=== PATIENT | male | born 1970 | race Caucasian/White ===

== ENCOUNTER 2024-09-09 19:12 | Emergency (ER) | payer OTHER, SELFPAY ==
[2024-09-09] VITALS (17 sets, daily range): BP systolic 133–154; BP diastolic 78–89; PULSE 46–65; RESP 16–18; TEMP 36.7; O2SAT 97–99; BMI 29.8
--- NOTE | 2024-09-09 19:25 | CRLHL7_ITS ---
For Patients: As a result of the Century Cures Act, medical imaging exams and procedure reports are released immediately into your electronic medical record. You may view this report before your referring provider. If you have questions, please contact your health care provider. INDICATION: Syncope. Fall. Facial injury. Right jaw pain. COMPARISON: None. TECHNIQUE: Noncontrast CT of the facial bones. FINDINGS: No facial fractures. Specifically, the nasal bones, zygomatic arches, and bony orbits are intact. No fractures of the maxilla or mandible. Normal articulation at the bilateral temporomandibular joints. Mucosal thickening frothy fluid of the bilateral maxillary sinuses. Mucosal thickening opacifies the bilateral ethmoid air cells. Remaining visualized paranasal sinuses mastoid air cells are clear. Visualized orbits are unremarkable. IMPRESSION: 1. No facial fractures 2. Normal articulation at the bilateral temporomandibular joints. 3. Moderate sinus disease. Please note that all CT scans at this facility use dose modulation, iterative reconstruction, and/or weight-based dosing when appropriate to reduce radiation dose to as low as reasonably achievable. Dictated by Jett Toscano MD @ 09/09/2024 7:58:21 PM (Electronically Signed)
--- NOTE | 2024-09-09 19:25 | CRLHL7_ITS ---
For Patients: As a result of the Century Cures Act, medical imaging exams and procedure reports are released immediately into your electronic medical record. You may view this report before your referring provider. If you have questions, please contact your health care provider. INDICATION: Syncope and fall. COMPARISON: None. TECHNIQUE: Noncontrast CT head. FINDINGS: Normal brain parenchymal morphology. No acute intracranial hemorrhage, acute infarct, focal edema, mass effect, or fracture. No midline shift. No abnormal ventricular dilatation. Normal calvarium and skull base. Lobulated mucosal thickening of the bilateral mastoid sinuses. Mucosal thickening opacifies the ethmoid air cells. Remaining visualized paranasal sinuses and mastoid air cells are clear. IMPRESSION: 1. No acute intracranial abnormality. 2. Normal brain parenchymal morphology. 3. Mild sinus disease Please note that all CT scans at this facility use dose modulation, iterative reconstruction, and/or weight-based dosing when appropriate to reduce radiation dose to as low as reasonably achievable. Dictated by Jett Toscano MD @ 09/09/2024 7:52:19 PM (Electronically Signed)
--- NOTE | 2024-09-09 19:27 | ED.SYNCOPE ---
HPI - Syncope General Time Seen by Provider: 19:27 Date Seen: 09/09/24 Chief Complaint: Syncope/Fainted Stated Complaint: fell, hit head Time Seen by Provider: 09/09/24 19:14 Source: patient and RN notes reviewed Mode of arrival: ambulatory Limitations: no limitations History of Present Illness HPI narrative: This 54-year-old male is ambulatory into the ED after a syncopal episode, presents with his . 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 He did not eat lunch, they were at the bar in [place] going to get dinner, he had had 2 beers. He states he went to go to the bathroom, while he was in the bathroom started to feel dizzy, patient was urinating. He noted no chest pain, no headache, no numbness tingling or weakness. He started feeling increased dizziness, felt clammy and sweaty, next thing he came to on the floor by the pool table. He does not actually remember passing out. A bystander sought, stated he was out for about 30-60 seconds. There was no seizure activity noted. His right jaw is sore but he denies any headache, no visual changes, no neck or back pain. No chest pain, no difficulty breathing, he had no sense of palpitations or irregular heartbeat or fast heartbeat either before or after. He maybe has a little bit of left elbow soreness but states he can fully flex and extend and move the arm without any pain. He noted no issues ambulating in. He states he is hungry. He admits that he has not had any water for 2 days probably, is not a good water drinker. complaint: loss of consciousness and felt faint Related Data Home Medications ?Medication ?Instructions ?Recorded ?Confirmed No Known Home Medications 09/09/24 09/09/24 Allergies Allergy/AdvReac Type Severity Reaction Status Date / Time No Known Drug Allergies Allergy Verified 09/09/24 19:24 Review of Systems Status of ROS: Reports: 6 or more systems reviewed and unremarkable except as noted in History and below Exam Const: Vital Signs, click to edit/add: Vital Signs - 24 hr 09/09/24 19:20 09/09/24 19:39 Temperature 98.0 F Pulse Rate [Right Pulse Oximeter] 65 Respiratory Rate 18 Blood Pressure [Ri ght Upper Arm] 140/79 H Pulse Oximetry 98 98 Oxygen Delivery Me thod Room Air This 54-year-old male is alert, interactive, no apparent stress. GCS is 15/15. He ambulated into the ED of his own accord, get normal. Pupils equal round reactive, sclerae clear, extraocular muscles intact. Maybe mild superficial abrasion over the mid right zygomatic arch and then more linear abrasion below the right jaw line on the undersurface of the chin. None of these are actively bleeding. Nose is atraumatic. Is able to open his jaw although he states it feels sore on the right side, oropharynx with normal mucosa, normal dentition, no traumatic change. No cervical adenopathy or masses in his neck. No midline tenderness of his neck, full range of motion of his neck without any discomfort. Back inspected, no traumatic change. Lungs are clear, good air entry, no wheezing or crackles. No tachypnea. CV regular rate and rhythm, no murmur, normal S1-S2, no S3-S4. He is able to mobilize his upper extremities, utilizes all joints with flexion extension, strength is 5 5 and symmetric, no traumatic change noted. Abdomen is soft, nontender, nondistended, no organomegaly or tenderness. Mobilize as his lower extremities, gait was normal, no neurologic changes. Documenting provider has reviewed patient's vital signs: yes Course Course ED Course: Patient will have EKG, cardiac monitoring and pulse oximetry. Will place an IV and give him 500 mL of normal saline. We will check full complement of labs. He will get a head CT for the trauma in the syncope, will also do maxillofacial CT imaging to ensure no jaw fracture. He is hemodynamically stable, oxygenating well, no bleeding. This might be multifactorial syncope from alcohol use, poor oral intake with food and water and being hungry, then going to urinate, possible component of micturition syncope contributing to this. Does not sound like there is any seizure activity. Will continue to monitor patient here and evaluate any further concerns. Doubtful that this is subarachnoid hemorrhages he has no headache, no preceding headache. Will do D-dimer but unlikely to be significant pulmonary embolus as patient is hemodynamically stable in absolutely no chest or respiratory symptoms. Reevaluation(s) Time of Reevaluation #1: 20:33 Reevaluation #1: Have reviewed the negative head CT, no fracture of the jaw. Did offer patient has some Tylenol or ibuprofen but he does not want anything for his jaw. It is sore but he states it is not significant. Did offer an ice pack which he declines. Reviewed with him that he might need to eat softer foods through the weekend, he might even evolve into a TMJ type symptoms from trauma, may need to watch for this. Initial labs are normal, will do a follow-up troponin. He thinks that this happened around 645, maybe 7 at the latest. Thus, we are close to a 3 hour interval and will do a follow-up troponin. He has no evidence of any arrhythmia, no hypoxia, no cardiac or respiratory symptoms, no headache. Lactate was normal. Time of Reevaluation #2: 21:14 Reevaluation #2: Did review his glucose level with him as he was interested in this. His follow-up troponin is normal, he has no recurrent symptoms, has been back to baseline since the event. Will plan on discharge to home, likely vasovagal syncope but have stressed to him that if there recurrent episodes, he needs further workup. Vital Signs Vital signs: Initial Vital Signs Temperature 98.0 F 09/09/24 19:20 Temperature Source Temporal Artery Scan 09/09/24 19:20 Pulse Rate 65 09/09/24 19:20 Respiratory Rate 18 09/09/24 19:20 Blood Pressure 140/79 H 09/09/24 19:20 Blood Pressure Mean 99 09/09/24 19:20 Blood Pressure Position Sitting 09/09/24 19:20 Pulse Oximetry 98 09/09/24 19:20 Oxygen Delivery Method Room Air 09/09/24 19:20 Vital Signs Temperature 98.0 F 09/09/24 19:20 Pulse Rate 65 09/09/24 19:20 Respiratory Rate 18 09/09/24 19:20 Blood Pressure 140/79 H 09/09/24 19:20 Pulse Oximetry 98 09/09/24 19:20 Oxygen Delivery Method Room Air 09/09/24 19:20 Temperature 98.0 F 09/09/24 19:20 Pulse Rate 65 09/09/24 19:20 Respiratory Rate 18 09/09/24 19:20 Blood Pressure 140/79 H 09/09/24 19:20 Pulse Oximetry 98 09/09/24 19:39 Oxygen Delivery Method Room Air 09/09/24 19:20 Medications Administered Medications: Discontinued Medications Generic Name Dose Route Start Last Admin Trade Name Janel PRN Reason Stop Dose Admin Sodium Chloride 500 mls @ 500 mls/hr 09/09/24 19:26 09/09/24 19:47 0.9 % Sodium Chloride 500 Ml IV 09/09/24 20:25 500 mls/hr .Q1H ONE Administration MDM - Syncope Lab Data Attestation: I reviewed the patient's lab results. Labs: Lab Results 09/09/24 09/09/24 09/09/24 Range/Units 19:30 19:30 19:30 WBC 6.00 (4.50-11.00) K/uL RBC 4.50 (4.30-5.90) m/uL Hgb 14.3 (13.5-17.5) gm/dL Hct 43.2 (37.0-53.0) % MCV 96 (80-100) fL MCH 32 (26-34) pg MCHC 33 (32-36) gm/dL RDW Coeff of Gerry 12.4 (11.5-15.5) % Plt Count 200 (140-440) K/uL Neut % (Auto) 51.8 (42.0-72.0) % Lymph % (Auto) 30.7 (20-44) % Bureau % (Auto) 12.0 H (0.0-11.0) % Eos % (Auto) 3.8 (0.0-7.0) % Baso % (Auto) 0.7 (0.0-3.0) % Neut # (Auto) 3.11 (1.7-7.0) K/uL Lymph # (Auto) 1.84 (0.90-2.90) K/uL Bureau # (Auto) 0.70 (0.00-0.90) K/UL Eos # (Auto) 0.23 (0.00-0.50) K/uL Baso # (Auto) 0.04 (0.00-0.30) K/uL Abs Immat Gran (auto) 0.06 (0.00-0.30) K/uL Imm/Tot Granulo (auto) 1.0 % D-Dimer Quant (PE/DVT) 0.54 H (0.00-0.50) ug/ml Sodium 135 (135-149) mmol/L Potassium 3.6 (3.6-5.1) mmol/L Chloride 98 (96-114) mmol/L Carbon Dioxide 28 (20-32) mmol/L Anion Gap 9 (7-15) mEq/L BUN 21 (7-30) mg/dL Creatinine 0.9 (0.5-1.5) mg/dL Estimated Creat Clear 100.59 Estimated GFR 100 ml/min Glucose 137 H (60-115) mg/dL Lactate 1.7 (0.5-1.9) mmol/L Calcium 9.9 (8.4-10.6) mg/dL Total Bilirubin 0.2 (0.1-1.5) mg/dL AST 31 (12-35) U/L ALT 40 (4-50) U/L Alkaline Phosphatase 61 (40-150) U/L Troponin I < 0.01 L Cancelled (0.01-0.04) ng/mL NT-Pro-B Natriuret Pep < 20 Cancelled pg/mL Total Protein 7.2 (6.0-8.3) g/dL Albumin 4.5 (3.3-5.0) g/dL Ethyl Alcohol 0.03 (0.01-0.03) % POC Troponin I (0.01-0.04) ng/ml 09/09/24 Range/Units 20:39 WBC (4.50-11.00) K/uL RBC (4.30-5.90) m/uL Hgb (13.5-17.5) gm/dL Hct (37.0-53.0) % MCV (80-100) fL MCH (26-34) pg MCHC (32-36) gm/dL RDW Coeff of Gerry (11.5-15.5) % Plt Count (140-440) K/uL Neut % (Auto) (42.0-72.0) % Lymph % (Auto) (20-44) % Bureau % (Auto) (0.0-11.0) % Eos % (Auto) (0.0-7.0) % Baso % (Auto) (0.0-3.0) % Neut # (Auto) (1.7-7.0) K/uL Lymph # (Auto) (0.90-2.90) K/uL Bureau # (Auto) (0.00-0.90) K/UL Eos # (Auto) (0.00-0.50) K/uL Baso # (Auto) (0.00-0.30) K/uL Abs Immat Gran (auto) (0.00-0.30) K/uL Imm/Tot Granulo (auto) % D-Dimer Quant (PE/DVT) (0.00-0.50) ug/ml Sodium (135-149) mmol/L Potassium (3.6-5.1) mmol/L Chloride (96-114) mmol/L Carbon Dioxide (20-32) mmol/L Anion Gap (7-15) mEq/L BUN (7-30) mg/dL Creatinine (0.5-1.5) mg/dL Estimated Creat Clear Estimated GFR ml/min Glucose (60-115) mg/dL Lactate (0.5-1.9) mmol/L Calcium (8.4-10.6) mg/dL Total Bilirubin (0.1-1.5) mg/dL AST (12-35) U/L ALT (4-50) U/L Alkaline Phosphatase (40-150) U/L Troponin I (0.01-0.04) ng/mL NT-Pro-B Natriuret Pep pg/mL Total Protein (6.0-8.3) g/dL Albumin (3.3-5.0) g/dL Ethyl Alcohol (0.01-0.03) % POC Troponin I 0.01 (0.01-0.04) ng/ml Imaging Data CT scan - head: Attestation: I have reviewed the pertinent imaging results. Radiologist's impression: Patient: ZAFAR CALLES Facility:?[facility] Patient ID:?[id number] Site Patient ID:?[id number]. Site :?[id number] Study:?CT-Head W/O-09/09/2024 7:43:24 PM Ordering Physician:Shannon Richards Final Report: INDICATION: Syncope and fall. COMPARISON: None. TECHNIQUE: Noncontrast CT head. FINDINGS: Normal brain parenchymal morphology. No acute intracranial hemorrhage, acute infarct, focal edema, mass effect, or fracture. No midline shift. No abnormal ventricular dilatation. Normal calvarium and skull base. Lobulated mucosal thickening of the bilateral mastoid sinuses. Mucosal thickening opacifies the ethmoid air cells. Remaining visualized paranasal sinuses and mastoid air cells are clear. IMPRESSION: 1. No acute intracranial abnormality. 2. Normal brain parenchymal morphology. 3. Mild sinus disease Please note that all CT scans at this facility use dose modulation, iterative reconstruction, and/or weight-based dosing when appropriate to reduce radiation dose to as low as reasonably achievable. Dictated by Jett Toscano MD @ 09/09/2024 7:52:19 PM (Electronic Signature) CT- Other: Attestation: I have reviewed the pertinent imaging results. Radiologist's impression: Patient: ZAFAR CALLES Facility:?[facility] Patient ID:?[id number] Site Patient ID:?[id number]. Site :?[id number] Study:?CT-Facial W/O-09/09/2024 7:43:57 PM Ordering Physician:?Marciano Richards Final Report: INDICATION: Syncope. Fall. Facial injury. Right jaw pain. COMPARISON: None. TECHNIQUE: Noncontrast CT of the facial bones. FINDINGS: No facial fractures. Specifically, the nasal bones, zygomatic arches, and bony orbits are intact. No fractures of the maxilla or mandible. Normal articulation at the bilateral temporomandibular joints. Mucosal thickening frothy fluid of the bilateral maxillary sinuses. Mucosal thickening opacifies the bilateral ethmoid air cells. Remaining visualized paranasal sinuses mastoid air cells are clear. Visualized orbits are unremarkable. IMPRESSION: 1. No facial fractures 2. Normal articulation at the bilateral temporomandibular joints. 3. Moderate sinus disease. Please note that all CT scans at this facility use dose modulation, iterative reconstruction, and/or weight-based dosing when appropriate to reduce radiation dose to as low as reasonably achievable. Dictated by Jett Toscano MD @ 09/09/2024 7:58:21 PM (Electronic Signature) ECG Data Attestation: I personally reviewed and interpreted this ECG as follows: (Normal sinus rhythm, rate 65 beats per minute. No evidence of any ischemia or infarct. QT corrected 424 milliseconds.) ECG interpretation date: 09/09/24 ECG interpretation time: 19:38 Prior ECG tracings: not available for review Discharge Plan Discharge Clinical Impression: Vasovagal syncope Instructions: Syncope (ED) Additional Instructions: I do recommend that you try to drink more fluids throughout the day, eat regular meals. If you have further episodes of syncope, this does need to be further evaluated, may need to see Cardiology, possibly even Neurology depending on what current symptoms are pointing to at that time. My point is, if there are future events of syncope, does warrant further workup and consideration. Based on the events of the evening, this really seems like it was vasovagal in nature. Prescriptions: No Action No Known Home Medications Follow Up/Referrals: Victorino Wasserman MD [Primary Care Provider] - Stand Alone Forms: [employer] Info Instructions
[2024-09-09 19:37] LABS: Lactate* 1.7 mmol/L (0.5-1.9)
[2024-09-09 19:47] LABS: Basophils Absolute Auto 0.04 K/uL (0.00-0.30); Basophils Percent Auto 0.7 % (0.0-3.0); Eosinophils Absolute Auto 0.23 K/uL (0.00-0.50); Eosinophils Percent Auto 3.8 % (0.0-7.0); Hematocrit 43.2 % (37.0-53.0); Hemoglobin* 14.3 gm/dL (13.5-17.5); Immature Granulocytes Abs Auto 0.06 K/uL (0.00-0.30); Lymphocytes Absolute Auto 1.84 K/uL (0.90-2.90); Lymphocytes Percent Auto 30.7 % (20-44); Mean Corpuscular HGB Conc 33 gm/dL (32-36); Mean Corpuscular Hemoglobin 32 pg (26-34); Mean Corpuscular Volume 96 fL (80-100); Neutrophils Absolute Auto 3.11 K/uL (1.7-7.0); Neutrophils Percent Auto 51.8 % (42.0-72.0); Platelet Count* 200 K/uL (140-440); RDW Coefficient of Variation % 12.4 % (11.5-15.5)
[2024-09-09] MEDS: 0.9 % SODIUM CHLORIDE 500 ML 500 ML IV (19:47)
[2024-09-09 19:53] LABS: Slide Review Reflex No
[2024-09-09 19:54] LABS: Albumin* 4.5 g/dL (3.3-5.0); Chloride* 98 mmol/L (96-114); Potassium* 3.6 mmol/L (3.6-5.1); Sodium* 135 mmol/L (135-149)
[2024-09-09 19:56] LABS: Anion Gap 9 mEq/L (7-15); Bilirubin Total* 0.2 mg/dL (0.1-1.5); Carbon Dioxide* 28 mmol/L (20-32); Creatinine* 0.9 mg/dL (0.5-1.5); Est. Creatinine Clearance* 100.59; Estimated Glomerular Filt Rate 100 ml/min
[2024-09-09 19:57] LABS: Alanine Aminotransferase* 40 U/L (4-50); Alkaline Phosphatase* 61 U/L (40-150); Aspartate Amino Transferase* 31 U/L (12-35); Blood Urea Nitrogen* 21 mg/dL (7-30); Calcium* 9.9 mg/dL (8.4-10.6); Glucose* 137 mg/dL (60-115); Total Protein* 7.2 g/dL (6.0-8.3)
[2024-09-09 19:58] LABS: D Dimer Quantitative* 0.54 ug/ml (0.00-0.50); Ethanol* 0.03 % (0.01-0.03)
[2024-09-09 20:10] LABS: NT Pro B Type NatriureticPept* < 20 pg/mL; Troponin I* < 0.01 ng/mL (0.01-0.04)
[2024-09-09 21:07] LABS: Troponin, Point-of-Care* 0.01 ng/ml (0.01-0.04)
== END 2024-09-09 21:30 | disposition home or self-care (01) ==
PROVIDERS: Emergency Provider Family Medicine; PCP Family Medicine
DX: R55 Syncope and collapse (principal)
CPT/HCPCS: 36415; 70450; 70486; 80053; 82077; 83605; 83880; 84484; 85025; 85379; 93005; 94761; 99284; 99285; J7030